=== PATIENT | male | born 1960 | race Caucasian/White ===

== ENCOUNTER 2023-09-26 06:55 | Day surgery (SDC) | payer OTHER ==
--- NOTE | 2023-09-23 10:43 | RAD REPORT ---
EXAM DESCRIPTION: RAD - Chest Pa And Lat (2 Views) - 09/23/2023 10:38 am CLINICAL HISTORY: Pre op pending mastectomy COMPARISON: Chest Single View dated 05/07/2016; Chest Single View dated 05/06/2016; 3D DIAG CELESTE BILAT W/CAD dated 07/13/2023 FINDINGS: Lines: None. Lungs: No evidence of edema or pneumonia. Pleural: No significant pleural effusions or pneumothorax. Cardiac: The heart size is within normal limits. Mediastinum: Within normal limits. Bones: No acute fractures. Other: None IMPRESSION: No acute cardiopulmonary disease.
[2023-09-23 10:50] LABS: Absolute Lymphocytes (CBC) 2.2 K/uL (0.7-4.9); Hematocrit 46.5 % (39.6-49.0); Lymphocytes % 27.9 % (15.3-44.8); MCV 90.8 fL (80-100); MPV 8.9 fL (7.6-11.3); Platelets 251 thou/uL (152-406); RBC Red Blood Cell Count 5.12 M/uL (4.33-5.43)
[2023-09-23 11:26] LABS: Protime INR 0.93
--- NOTE | 2023-09-23 14:45 | EKG ---
Test Date: 2023-09-23 Test Time: 11:21:08 Auto Locator: MOISES MEASUREMENT RESULTS: Intervals: Rate: 57 TN: 178 QRSD: 110 QT: 436 QTc: 424 [place]: P: 59 TN: 178 QRS: 19 T: 75 INTERPRETIVE STATEMENTS: Sinus bradycardia Otherwise normal ECG Compared to ECG 05/06/2016 17:47:14 Sinus rhythm no longer present Ventricular premature complex(es) no longer present Electronically Signed On 09-23-23 14:44:19 SHE[employer]ATCHER by Jone Rdz
[2023-09-26] MEDS ORDERED: Ringers Lactate 1,000 ML IV ONE (07:16)
[2023-09-26] MEDS: CEFAZOLIN SODIUM 1 GM/VIAL ONE ×2 (07:37→09:20)
[2023-09-26] MEDS ORDERED: METHYLENE BLUE 1% 10 ML VIAL ONE (07:57)
[2023-09-26] MEDS ORDERED: LIDOCAINE 1% 20 ML MDV ONE (07:58)
[2023-09-26] MEDS ORDERED: MIDAZOLAM HCL 2 MG/2 ML INJ ONE (08:06)
[2023-09-26] MEDS ORDERED: propofoL 200 MG/20 ML VIAL IV ONE (08:06)
[2023-09-26] MEDS ORDERED: LIDOCAINE 2% MPF 5 ML VIAL ONE (08:06)
[2023-09-26] MEDS ORDERED: FENTANYL CITR 100 MCG/2 ML ONE (08:06)
[2023-09-26] MEDS ORDERED: ONDANSETRON 4 MG/2 ML VIAL ONE (08:06)
[2023-09-26] MEDS ORDERED: SUCCINYLCHOLINE 20 MG/ML (10 ML) IV ONE (08:26)
[2023-09-26] MEDS ORDERED: HYDROMORPHONE HCL 1 MG/ML INJ ONE (08:26)
[2023-09-26] MEDS ORDERED: CEFAZOLIN SODIUM 1 GM/VIAL ONE (09:27)
[2023-09-26] MEDS ORDERED: EPHEDRINE SULF 50 MG/ML VIAL ONE (09:29)
[2023-09-26] MEDS ORDERED: dexAMETHasone 10 MG/ML VIAL ONE (09:32)
--- NOTE | 2023-09-26 11:06 | P.BOP ---
Preoperative diagnosis: left breast tender enlarging mass, Tender enlarging gynecomastia Postoperative diagnosis: same Primary procedure: Left subcutanoeous mastectomy Estimated blood loss: <10cc Specimen: breast Findings: as above Anesthesia: General Complications: None Drain(s): DARIAN drain Transferred to: Recovery Room Condition: Good
[2023-09-26 13:21] VITALS: TEMP 97; O2SAT 98
[2023-09-26 13:22] VITALS: BP 120/70
== END 2023-09-26 12:15 | disposition home or self-care (01) ==
LOC: OR 06:55
PROVIDERS: ATTEND Surgery
PROC: 0HBU0ZZ Excision of Left Breast, Open Approach (ICD-10-PCS; principal; 2023-09-26 09:15)
DX: N62 Hypertrophy of breast (principal); I48.91 Unspecified atrial fibrillation; G25.81 Restless legs syndrome; F41.9 Anxiety disorder, unspecified; Z85.46 Personal history of malignant neoplasm of prostate; Z79.01 Long term (current) use of anticoagulants; Z79.899 Other long term (current) drug therapy
CPT/HCPCS: 93005; 85025; 80048; 36415; 85610; 88305; 85730; 71046; 19300; J2704; J2001; J2250; J3010; J1100; J1170; J2405; J7120; J0690 ×2